=== PATIENT | male | born 2000 | race Caucasian/White ===

== ENCOUNTER 2022-05-07 21:32 | Emergency (ER) | payer SELFPAY ==
--- NOTE | 2022-05-23 15:16 | ER ---
Nurse's Notes [facility] Name: Abdullahi Gallo Age: 22 yrs Sex: Male : 2000 Arrival Date: 05/07/2022 Time: 21:48 Bed IW2 Private MD: Diagnosis: Encounter for screening, unspecified Presentation: 05/07 21:58 Chief complaint: mental health deputy states he was called by PD for pt with "mental bb deterioration" pt denies suicidal or homicidal ideations. Coronavirus screen: At this time, the client does not indicate any symptoms associated with coronavirus-19. Ebola Screen: No symptoms or risks identified at this time. Initial Sepsis Screen: Does the patient meet any 2 criteria? No. Patient's initial sepsis screen is negative. Does the patient have a suspected source of infection? No. Patient's initial sepsis screen is negative. Risk Assessment: Do you want to hurt yourself or someone else? Patient reports no desire to harm self or others. Onset of symptoms is unknown. 21:58 Method Of Arrival: Law Enforcement: [facility] deputy bb 21:58 Acuity: MANDO 2 bb Triage Assessment: 22:00 General: Appears in no apparent distress. slender, Behavior is uncooperative. Pain: bb Unable to use pain scale. FLACC scale score is 0 out of 10. Neuro: Level of Consciousness is awake, alert, obeys commands, Oriented to person, place, situation. Cardiovascular: Capillary refill < 3 seconds Patient's skin is warm and dry. Respiratory: Respiratory effort is unlabored. GI: No signs and/or symptoms were reported involving the gastrointestinal system. Derm: Skin is pink, warm \\T\\ dry. Musculoskeletal: Circulation, motion, and sensation intact. Historical: - Allergies: 22:00 Unable to obtain; bb - Immunization history:: Adult Immunizations unknown. - Social history:: Smoking status: unknown. Assessment: 22:38 Reassessment: pt left the ED accompanied by the [facility] prior to receiving bb discharge paperwork. Vital Signs: 21:58 BP 113 / 86; Pulse 98; Resp 16 S; Temp 97.9(O); Pulse Ox 100% on R/A; bb ED Course: 21:48 Patient arrived in ED. [email or web address] 21:53 Piyush Boone PA is PHCP. cp 21:53 Pj Cole MD is Attending Physician. cp 22:00 Triage completed. bb 22:00 Arm band placed on Patient placed in waiting room, Patient notified of wait time. bb Administered Medications: No medications were administered Outcome: : Discharge ordered by . cp 22:39 Patient left the ED. bb Signatures: Saira Jeronimo RN RN bb Piyush Boone PA PA Cheryl Asencio [email or web address] Corrections: (The following items were deleted from the chart) 22: 22:00 Allergies: No Known Allergies; bb bb
--- NOTE | 2022-05-23 15:16 | EDPHYS ---
Physician Documentation [facility] Name: Abdullahi Gallo Age: 22 yrs Sex: Male : 2000 Arrival Date: 05/07/2022 Time: 21:48 Bed IW2 Private MD: ED Physician Pj Cole HPI: 05/07 22:20 This 22 yrs old Male presents to ER via Law Enforcement with complaints of Altered cp Mental Status, Foot Injury. 22:20 The patient presents with pain, that is acute. cp 22:20 Patient reports he is not suicidal and/or homicidal and is requesting a bed to sleep cp for next 3 days. Historical: - Allergies: 22:00 Unable to obtain; bb - Immunization history:: Adult Immunizations unknown. - Social history:: Smoking status: unknown. ROS: 22:22 MS/extremity: Positive for pain, foot. cp Exam: 22:23 Head/Face: Normocephalic, atraumatic. cp 22:23 Constitutional: The patient appears in no acute distress, alert, awake, non-diaphoretic, non-toxic, well developed, well nourished. 22:23 Cardiovascular: Rate: normal. 22:23 Respiratory: the patient does not display signs of respiratory distress, Respirations: normal, no use of accessory muscles, no retractions, labored breathing, is not present. 22:23 Psych: Behavior/mood is aggressive, angry, Affect is animated, Patient has no thoughts/intents to harm self or others. Judgement / Insight is normal. Delusions/hallucinations are not present. 22:23 Neuro: Orientation: to person, place \T\ time. Mentation: is normal, Motor: moves all cp fours, strength is normal. Vital Signs: 21:58 BP 113 / 86; Pulse 98; Resp 16 S; Temp 97.9(O); Pulse Ox 100% on R/A; bb MDM: 22:03 Patient medically screened. cp 22:24 Data reviewed: vital signs, nurses notes, and as a result, I will discharge patient. ED cp course: Patient reports he is not suicidal and/or homicidal. Patient clinically is able to make informed decisions and refuses any care at this time. 05/07 22:15 Order name: EKG - Nurse/Tech cp 05/07 22:15 Order name: IV Saline Lock cp 05/07 22:15 Order name: Labs collected and sent cp 05/07 22:15 Order name: Suicide Screening ([place]) cp 05/07 22:15 Order name: Urine Dipstick-Ancillary (obtain specimen) cp Administered Medications: No medications were administered Disposition Summary: 05/07/22 22:27 Discharge Ordered Location: Home cp Problem: new cp Symptoms: are unchanged cp Condition: Stable cp Diagnosis - Encounter for screening, unspecified cp Followup: cp - With: Emergency Department - When: As needed - Reason: Worsening of condition Discharge Instructions: - Discharge Summary Sheet cp - Medical Screening Exam cp Forms: - Medication Reconciliation Form cp - Thank You Letter cp - Antibiotic Education cp - Prescription Opioid Use cp Signatures: Dispatcher [employer] Saira Samuels RN RN bb Piyush Boone PA PA cp Corrections: (The following items were deleted from the chart) 22:01 22:00 Allergies: No Known Allergies; sanjuanita gann 22:23 22:22 Patient reports he is not suicidal and/or homicidal and is requesting a bed to sleep for next 3 days. cp
== END 2022-05-07 22:39 | disposition home or self-care (01) ==
LOC: ER 21:32
DX: R41.82 Altered mental status, unspecified (principal)
CPT/HCPCS: 99282